=== PATIENT | female | born 1975 | race Caucasian/White ===

== ENCOUNTER 2017-07-22 09:32 | Emergency (ER) | payer MEDICAID, SELFPAY ==
[2017-07-22 09:34] VITALS: BP 136/89; PULSE 104; RESP 18; TEMP 36.1; O2SAT 97; BMI 49.1
--- NOTE | 2017-07-22 09:46 | RAD_ITS ---
STUDY: X-RAY - LEFT KNEE REASON FOR EXAM: Female, 42 years old. Pain following a fall. TECHNIQUE: 5 view(s) of the knee. COMPARISON: None. FINDINGS: Normal visualized distal femur. Normal visualized proximal tibia and fibula. Normal proximal tibiofibular articulation. Normal medial femorotibial compartment. Normal lateral femorotibial compartment. Normal patellofemoral articulation. The soft tissue structures are unremarkable. RAD/Knee 4 or More Views IMPRESSION: Normal x-ray examination of the knee. Electronically Signed: Joselito Carreon MD at 11:27 EST Tel [phone], Service support ,
--- NOTE | 2017-07-22 09:46 | VDLE_ITS ---
Reason For Study: LLE PAIN RIGHT LEFT CFV is compressible, spontaneous, phasic, GSV is normal. competent and demonstrates normal CFV is compressible, spontaneous, phasic, augmentation. competent, and demonstrates normal Procedure augmentation. Exam performed portable in ED. FV is compressible, spontaneous, phasic, The exam was diagnostic. competent and demonstrates normal The study was technically difficult. augmentation. A preliminary report was called and/or faxed POP V is compressible, spontaneous, phasic, to ED @ 10:45 AM. competent and demonstrates normal augmentation. T/P Trunk is compressible. PTV is compressible. LT PerV is compressible. Interpretation Summary Deep veins of the left lower extremity are patent and compressible segmentally. There is no evidence of left lower extremity deep vein thrombosis. Valvular competence appears intact within the proximal deep venous system on the left . The left greater saphenous vein appears patent and compressible segmentally. Ordering Physician: Marichuy Sloan Referring Physician: OTD Performed By: Clementina Abebe RDCS, RVT
--- NOTE | 2017-07-22 09:51 | ED.DCSUM_ITS ---
- ER Visit Summary Date of Service: 07/22/17 Chief Complaint: Left knee pain History of Present Illness: The patient is a 42 F presenting with left knee pain. Patient states that she had a knee scope performed in April by Dr. Cullen Reynolds in [place]. She states over the weekend she started to have increasing pain in her left knee. While walking into work today, she felt a pop in her knee and she fell to the ground. She did not hit her head or lose consciousness. Complains of diffuse left knee pain. Denies fever. No other complaints. Physical Examination: Vitals are stable. Patient is afebrile. Alert no acute distress. HEENT exam is unremarkable. Neck is supple. Lungs are clear and equal bilaterally. Heart is regular rate and rhythm. Extremities left anterior and posterior knee tenderness, active full range of motion. No erythema or warmth. Normal distal pulses. Skin is warm and dry. No focal neurologic deficit. Remainder of exam is unremarkable. Emergency Department Course and Treatment: Patient is given morphine, Zofran IM. Venous Doppler shows no evidence of DVT. She continues to have pain and was given Dilaudid IM with improvement. X-ray left knee shows no acute process. Patient has an appointment with her orthopedic surgeon tomorrow. She is given a short course of Percocet. She is advised to return to ED for worsening complaints. Disposition: Discharge home Impression: Left knee pain This note was generated with [employer] dictation software. It may contain incorrect words, spelling, and punctuation that were not noted in review of the chart prior to signing ED Disposition - Plan for ED Patient: Chief Complaint: Lower Extremity Injury Referrals: [facility] Doctor,Out of [NON-STAFF] -
[2017-07-22] MEDS: Ondansetron 4 MG/2 ML Vial IM (10:15)
--- NOTE | 2017-07-22 10:20 | NURSING ---
VASCULAR LAB IN ROOM
[2017-07-22] MEDS: HYDROmorphone 1 MG/ML Syringe 2 MG IM (11:22)
--- NOTE | 2017-07-22 11:44 | ED.DEP ---
ED Disposition - Plan for ED Patient: Chief Complaint: Lower Extremity Injury Instructions: ED Sprain Knee Prescriptions: Oxycodone HCl/Acetaminophen [Percocet 5/325] 1 tablet PO Q6H PRN PRN 2 Days #8 tablet PRN Reason: Pain Referrals: [facility],Out of [NON-STAFF] -
[2017-07-22 11:57] VITALS: BP 132/80; PULSE 98; RESP 14; O2SAT 99
== END 2017-07-22 12:05 | disposition home or self-care (01) ==
PROVIDERS: Emergency Provider Emergency Medicine
DX: M25.562 Pain in left knee (principal)
CPT/HCPCS: 73564; 93971; 96372; 99282; J2405

== ENCOUNTER → 2017-08-13 06:55 | Outpatient (CLI) | payer MEDICAID, SELFPAY ==
--- NOTE | 2017-08-13 07:01 | MRI_ITS ---
STUDY: MRI LEFT KNEE REASON FOR EXAM: Female, 42 years old. Acute left-sided knee pain. TECHNIQUE: Standardized fat and water weighted pulse sequences were obtained in all 3 orthogonal planes. Multiple images are limited by patient motion. COMPARISON: Radiographs of the left knee dated July 22, 2017. FINDINGS: Normal medial meniscus. There is diffuse, less than 50% thickness articular cartilage loss of the medial femorotibial compartment. There is moderate osteoarthritic spur formation of the medial knee compartment. There is fluid distension of the tibial collateral bursa, consistent with an associated bursitis. Normal distal semimembranosus, gracilis and semitendinosus tendons. The anterior horn the lateral meniscus is very small. This suggests the possibility of previous tear and/or surgery. The posterior horn the lateral meniscus is within normal limits. There is diffuse, greater than 50% thickness articular cartilage loss of the lateral femorotibial compartment. There is mild osteoarthritic spur formation of the lateral knee compartment. Normal proximal tibiofibular articulation. Normal lateral collateral (fibular) ligament. Normal popliteus tendon. Normal biceps femoris tendon. Normal anterior cruciate ligament (ACL). Normal posterior cruciate ligament (PCL). Normal congruent patellofemoral articulation. There is diffuse, full thickness articular cartilage loss of the patellofemoral compartment. There is subtle abnormal T2 hyperintensity within the subarticular posterior patella probably related to chondromalacia patella. Normal medial and lateral patellar retinaculum. Normal quadriceps tendon. Normal patellar tendon. Normal Hoffa's fat pad. There is a moderate volume joint effusion. There is a popliteal cyst measuring approximately 5.4 x 1.9 x 0.9 cm in size. There is a cystic lesion adjacent to the medial tibial plateau that may represent sequela of bursitis or meniscal cyst. There is abnormal soft tissue edema anterior to the proximal tibia patellar tendon and patella that may be the result of soft tissue contusion or infection. The otherwise visualized osseous structures are unremarkable. MRI/Lower Ext Joint Only (Routine) IMPRESSION: 1. 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 2. Moderately large joint effusion. 3. Paul's cyst. 4. Apparent tear of the anterior horn of the lateral meniscus. 5. Degenerative arthropathy of all three compartments of the knee. Electronically Signed: Tatiana Garza MD at 11:49 EDT , Service support ,
== END ==
PROVIDERS: Visit Provider Orthopaedic Surgery
DX: M25.562 Pain in left knee (principal)
CPT/HCPCS: 73721

== ENCOUNTER 2024-10-19 01:29 | Emergency (ER) | payer MEDICAID, SELFPAY ==
[2024-10-19 01:30] VITALS: BP 148/104; PULSE 81; RESP 16; TEMP 36.7; O2SAT 97; BMI 43.4
[2024-10-19] MEDS: 0.9% Normal Saline (1000mL) 2,000 ML 999 ML IV (01:51)
[2024-10-19] MEDS: proCHLORPERazine 10 MG/2 ML Vial IV (01:52)
[2024-10-19 02:06] LABS: Absolute Lymphocyte Count 1.28 X10^3/uL (0.83-4.51); Absolute Neutrophil Count 5.2 X10^3/uL (2.0-7.7); Basophil# 0.04 X10^3/uL; Basophil% 0.5 % (0-1); Eosinophils% 2.7 % (0-5); Hemoglobin 15.3 g/dL (12.0-15.0); Lymphocyte # 1.28 X10^3/ul (0.83-4.51); Lymphocyte % 17.5 % (19-41); Mean Corp Hgb Conc 32.6 g/dL (32-36); Mean Corpuscular Hgb 27.5 pg (27.0-32.0); Mean Corpuscular Volume 84.5 fL (81-99); Mean Platelet Vol. 10.9 fl (6.2-12.0); Monocyte# 0.63 X10^3/uL; Monocyte% 8.6 % (0-10); NRBC Flagged by Analyzer 0 % (0-5); Neutrophil # 5.15 X10^3/uL (2.7-7.7); Neutrophil % 70.4 % (47-70); Platelet Count 241 K/mm3 (150-450); RBC Distribution Width CV 13.9 % (11.6-14.6); RBC Distribution Width SD 43.1 fl (35.1-43.9); Red Blood Count 5.56 M/mm3 (4.2-5.4); White Blood Count 7.3 K/mm3 (4.4-11.0)
[2024-10-19 02:16] LABS: Mucous, Urine 0 SEEN /hpf (<or=2+)
[2024-10-19 02:32] LABS: Color, Urine Yellow (Yellow); Glucose, Dipstick Normal (Normal); Ketone-Dipstick 15 mg/dl (Negative); Leukocyte Esterase-Dipstick 25 /ul (Negative); Nitrite-Dipstick Positive (Negative); Occult Blood-Urine 25 /ul (Negative); Protein-Dipstick 30 mg/dl (Negative); Specific Gravity, Urine 1.015 (1.002-1.030); Urine Clarity Sl. Cloudy (Clear); Urine Urobilinogen 1 mg/dl (Normal)
[2024-10-19 02:34] LABS: Urine Bilirubin Dipstick 1 mg/dL (Negative)
[2024-10-19 02:36] LABS: AST(SGOT) 21 U/L (<=31); Alanine Aminotransfer ALT/SGPT 22 U/L (<=34); Albumin, Serum 4.3 g/dL (3.5-5.0); Alkaline Phosphatase 97 U/L (35-104); Anion Gap 15 (5-15); BUN 3 mg/dL (4-19); BUN/Creat Ratio 3.6 RATIO (10-20); Bilirubin, Direct 0.22 mg/dL (0.00-0.30); Calcium,Total 9.6 mg/dL (7.6-11.0); Carbon Dioxide 24.4 mmol/L (21.0-32.0); Chloride 103 mmol/L (98-108); EST Glomerular Filtration Rate 78 (>60); Estimated Creatinine Clearance 95.26 ml/min (50-250); Globulin 2.9 g/dL (2.2-4.2); Glucose 114 mg/dL (70-99); Lipase 14 U/L (13-75); Magnesium 1.9 mg/dL (1.5-2.2); Potassium 3.3 mmol/L (3.3-5.1); Protein, Total 7.2 g/dL (5.9-8.4); Sodium Level 142 mmol/L (133-145); Total Bilirubin 0.56 mg/dL (0.00-1.30)
[2024-10-19 02:49] LABS: Bacteria 3+ /hpf (None Seen); Red Blood Cells-Urine 0-5 SEEN /hpf (0-5); Squamous Epithelial Cells - UA 10-25 SEEN /hpf (5-10); White Blood Cells 0-5 SEEN /hpf (0-5)
[2024-10-19 03:25] VITALS: BP 132/86; PULSE 66; RESP 18; O2SAT 95
--- NOTE | 2024-10-19 03:53 | EX.ED.DYSGE1 ---
HPI History of Present Illness Chief Complaint: Nausea/Vomiting/Diarrhea Informant: patient Narrative Narrative: Patient is a 49-year-old female with past medical history of bipolar disorder. She states that on September 02 at [facility] she underwent a gastric bypass surgery. She reports that a few days later she ended up with a small bowel obstruction. She states that she was doing better but then became sick once again and the middle to end of September and was admitted to the hospital secondary to UTI. Patient states she was recently discharged but today has developed bouts of nausea and vomiting and diarrhea and states it is to the point where she cannot hold down her medication or fluids and secondary to this presents to the hospital for evaluation. She denies any known sick contacts. She states there has been no discoloration or blood to either her emesis or stool [facility] Medical History (Updated 10/19/24 @ 04:[address] Clay Fam, DO) Small bowel obstruction Home Medications ?Medication ?Instructions ?Recorded ?Last Taken ?Type oxycodone-acetaminophen 5 mg-325 1 tab PO Q6H PRN PRN Pain 2 days 07/22/17 Unknown Rx mg tablet ##8 prochlorperazine maleate 10 mg 10 mg PO TID PRN nausea and 10/19/24 Unknown Rx tablet (Compazine) vomiting #21 tabs Allergy/AdvReac Type Severity Reaction Status Date / Time acetaminophen (From [place]) Allergy Itching Verified 07/22/17 09:35 hydrocodone (From [place]) Allergy Itching Verified 07/22/17 09:35 Surgical History (Updated 10/19/24 @ 01:37 by Marry Longoria) History of Mau-en-Y gastric bypass Social History Smoking Status: Never smoker ROS ROS ED Constitutional Constitutional ED: Denies chills or fever(s) Eyes Eyes: Denies change in vision ENT ENT ED: Denies sore throat Cardiovascular Cardiovascular: Denies chest pain Respiratory/Chest Respiratory/Chest: Denies cough or dyspnea Gastrointestinal Gastrointestinal: Reports abdominal pain, diarrhea, nausea and vomiting; Denies melena Genitourinary Genitourinary ED: Denies dysuria or hematuria Musculoskeletal Musculoskeletal: Denies myalgias Integumentary Denies rash Neurologic Neurologic: Denies headache(s) Hematologic/Lymphatic Hematologic/Lymphatic: Reports easy bleeding and easy bruising EXAM Physical Exam Const Vital Signs: 10/19/24 01:30 10/19/24 03:25 10/19/24 04:10 Temperature 98.0 F 98.4 F Temperature Source Oral Pulse Rate 81 66 67 Respiratory Rate 16 18 18 Blood Pressure 148/104 H 132/86 H 130/62 H Blood Pressure Mean 118 101 84 Pulse Ox 97 95 99 Oxygen Delivery Method Room Air Room Air Positive well nourished, well developed and obese General Appearance ED: well developed; Negative for pallor Nutritional Appearance: obese HEENT Reports dry mucous membranes HEENT Narrative: Mucous membranes are dry and tacky No tongue or lip swelling no oral lesions no airway edema or compromise No secondary findings in the posterior pharynx to suggest infection Mouth ED: Yes dry mucous membranes Mouth: dry mucous membranes Eyes PERRL and EOMs intact bilaterally General Eye ED: Negative for scleral icterus Neck supple Neck Narrative: No nuchal rigidity or meningeal signs noted Resp normal respiratory effort and clear to auscultation bilaterally Cardio regular rate and regular rhythm Rate: other Other Details: Heart is regular rate and rhythm Radial and carotid pulses are equal and symmetric GI non-distended and no masses GI Narrative: Abdomen is obese soft and nondistended with hyperactive bowel sounds. There is mild diffuse pain on palpation without voluntary guarding or rigidity or pulsatile mass No peritoneal signs or fluid wave noted Surgical incisions are clean dry and intact Auscultation: hyperactive bowel sounds Palpation: soft Extremity normal to inspection Neuro oriented x3, CN's II-XII intact bilaterally and no sensory deficits noted Sensorium / Orientation: alert Motor Exam: strength 5/5 throughout Psych mental status grossly normal Skin no rashes or lesions noted and No skin turgor normal Skin Narrative: Skin turgor is slightly increased General Skin Exam: Negative for jaundice or pallor MDM MDM MDM Narrative Medical decision making narrative: Patient arrived to the ER slightly hypertensive but overall stable vitals. She reported multiple episodes of nausea vomiting and diarrhea today. She has been in and out of the hospital over the last 8 weeks and been on antibiotics so with diarrhea there is concern for potential C. difficile. Secondary to this I did order a stool study. With her symptoms and exam showing dehydration there is concern for acute kidney injury or clinically significant electrolyte abnormality. The patient states she was recently admitted for UTI and is currently on antibiotics. However in order to ensure that the infection is improving I will order a repeat UA. She does have a history of SBO following surgery but as her abdomen is not distended and she does not have constipation but diarrhea I have low concern for repeat obstruction and therefore there is no need for repeat CT scan. Basic blood work was obtained and shows no leukocytosis or left shift going against infectious process. Lipase is normal going against pancreatitis and there is no sign of ANN or clinically significant electrolyte abnormality. Urine does show +3 bacteria but there is contamination with skin cells and known white blood cells present and therefore this is most likely contamination. Moreover the patient is currently on antibiotics and therefore I do not feel the need for intervention at this time. After receiving IV fluids and Compazine the patient reported feeling better and she had no further bouts of vomiting. Therefore I do not feel there is need for transfer or admission especially as her repeat abdominal exam remains soft and nonsurgical. Patient is otherwise safe for discharge symptomatic care and can follow-up as an outpatient History & Record Review Discussion w/independent historian: Patient Lab Data Attestation: I reviewed the patient's lab results. Labs: Laboratory Results - last 24 hr 10/19/24 10/19/24 01:50 02:08 WBC 7.3 RBC 5.56 H Hgb 15.3 H Hct 47.0 MCV 84.5 MCH 27.5 MCHC 32.6 RDW Std Deviation 43.1 RDW Coeff of Graham 13.9 Plt Count 241 MPV 10.9 Immature Gran % (Auto) 0.300 Neut % (Auto) 70.4 H Lymph % (Auto) 17.5 L Avery % (Auto) 8.6 Eos % (Auto) 2.7 Baso % (Auto) 0.5 Absolute Neuts (auto) 5.2 Absolute Lymphs (auto) 1.28 Nucleated RBC % 0 Sodium 142 Potassium 3.3 Chloride 103 Carbon Dioxide 24.4 Anion Gap 15 BUN 3 L Creatinine 0.90 Estim Creat Clear Calc 95.26 Est GFR (MDRD) Non-Af 78 BUN/Creatinine Ratio 3.6 L Glucose 114 H Calcium 9.6 Magnesium 1.9 Total Bilirubin 0.56 Direct Bilirubin 0.22 AST 21 ALT 22 Alkaline Phosphatase 97 Total Protein 7.2 Albumin 4.3 Globulin 2.9 Lipase 14 Urine Color Yellow Urine Clarity Sl. Cloudy Urine pH 6.0 Ur Specific [place] 1.015 Urine Protein 30 H Urine Glucose (UA) Normal Urine Ketones 15 H Urine Occult Blood 25 H Urine Nitrite Positive H Urine Bilirubin 1 H Urine Urobilinogen 1 H Ur Leukocyte Esterase 25 H Urine RBC 0-5 SEEN Urine WBC 0-5 SEEN Ur Squamous Epith Cells 10-25 SEEN Urine Bacteria 3+ Urine Mucus 0 SEEN Discharge Plan Triage Chief Complaint: Nausea/Vomiting/Diarrhea ED Provider: Clay Fam Dx/Rx/DC Orders Clinical Impression: Nausea vomiting and diarrhea, Mild dehydration, History of bipolar disorder, Morbid obesity Instructions: ED Dehydration (Adult), ED Gastroenteritis, Viral (Adult) Prescriptions: New prochlorperazine maleate [Compazine] 10 mg tablet 10 mg PO TID PRN (Reason: nausea and vomiting) Qty: 21 0RF No Action oxycodone-acetaminophen 1 TABLET tablet 1 tab PO Q6H PRN PRN (Reason: Pain) 2 Days Qty: 8 0RF Primary Care Provider: Marry Robles Referrals: Marry Robles DO [Primary Care Provider] - Activity Restrictions/Additional Instructions: Your workup today does not show any signs of systemic infection or complication from your recent surgery. Your exam history and workup indicate you have a viral stomach infection that will last anywhere from 1 to 7 days with the average being 3 days. Take the Compazine as directed to help control any further bouts of nausea/vomiting and keep yourself well-hydrated. Return to the ER should you have any further concerns Print Language: Croatian Disposition Disposition: Home, Self Care Discharge Date/Time: 10/19/24 04:10
[2024-10-19 04:10] VITALS: BP 130/62; PULSE 67; RESP 18; TEMP 36.9; O2SAT 99
== END 2024-10-19 04:10 | disposition home or self-care (01) ==
PROVIDERS: Emergency Provider Emergency Medicine; PCP Family Medicine; Visit Provider Emergency Medicine
DX: R11.2 Nausea with vomiting, unspecified (principal); F31.9 Bipolar disorder, unspecified; E66.01 Morbid (severe) obesity due to excess calories; E86.0 Dehydration; R19.7 Diarrhea, unspecified; Z98.84 Bariatric surgery status
CPT/HCPCS: 80048; 80076; 81001; 83690; 83735; 85025; 96361; 96374; 99283; A4216